=== PATIENT | male | born 1965 | race Caucasian/White ===

== ENCOUNTER 2023-10-08 15:24 | Observation (INO) | payer BC, SELFPAY ==
[2023-10-08 10:31] VITALS: BP 120/75
--- NOTE | 2023-10-08 11:15 | ED.GENMED ---
History of Present Illness
<Khushbu Mariscal PA-C - Last Filed: 10/08/23 17:48>
General
Chief Complaint: Post Operative Problem(s)
Source: patient
Exam Limitations: none
Time Seen by Provider: 10/08/23 10:40
Nursing documentation reviewed up to this point in time: agreed with
Travel History
Have you had any contact with someone who has COVID-19?: No
Do you have any symptoms of coronavirus? Fever > 100 degrees, chills, cough, shortness of breath, sore throat, loss of taste or smell, muscle aches, or headache?: No
History of Present Illness
History of Present Illness:
Patient is a 58-year-old male with no significant past medical history postop day 5 from prostate biopsy presenting to emergency department for evaluation of fever and lower back pain. Patient had biopsy performed last Friday by Dr. Alejandra Pitts
at [facility]. On Friday he noticed a fever which has been intermittent but persisted since. Tmax of 102.5F. He also endorses low back pain. He was seen by his urologist on Friday where they did a urinalysis and culture. He was
started on Bactrim. He has been on antibiotic for 48 hours but symptoms have persisted. He states symptoms were worse last night with fever, urinary frequency, and back pain. He has been taking Tylenol every 6 hours to help with pain and fever.
He denies any chest pain, shortness of breath, nausea, vomiting, lightheadedness, or fainting. He denies any headache, neck pain. He denies any rectal bleeding or blood in his urine.
He has no other medical problems.
Past History
<Khushbu Mariscal PA-C - Last Filed: 10/08/23 17:48>
Past History
ED Past Medical History: Other (Diverticulitis)
ED Past Surgical History: None
Social History
Tobacco: Former smoker (quit 7 years ago)
Alcohol: None
Drug: None
Personal:
Living: with family
Employment: Employed
Family History
Family History: Other (n/c); Negative Cancer
Phy Exam
<Khushbu Mariscal PA-C - Last Filed: 10/08/23 17:48>
Physical Exam
Physical Exam:
General: In no apparent distress, nontoxic appearing
Vitals: Tachycardic, mildly febrile clinical otherwise vital signs stable
HEENT: Atraumatic, normocephalic; pupils equal round reactive light bilaterally, protecting airway
Neck: appears supple, no meningeal signs
CV: Tachycardic, regular rhythm, no evidence of cyanosis
Resp: No evidence of respiratory distress, lungs clear bilaterally without any wheezes, rales, rhonchi
Abd: Soft, nontender in all 4 quadrants non-distended
Extremities: No deformities, no evidence of cyanosis or edema DP pulses palpable and equal bilateral
Back: No reproducible tenderness or obvious deformities in lower back, no midline spinal
Neuro: alert and oriented x 3; speech normal, grossly intact
Psych: Normal affect
Skin: Intact, no rashes
Course
<Khushbu Mariscal PA-C - Last Filed: 10/08/23 17:48>
Orders/Labs/Results
Orders:
Orders
10/08/23 Lunch
Regular
At Your Request: Full Participation
Does patient need a safe tray?: No
10/08/23 11:10
0.9% Sodium Chloride 1000 ml [Nss] 1,000 ml IV BOLUS
10/08/23 11:28
Complete Blood Count/With Diff Urgent
Comprehensive Metabolic Panel Urgent
Lactic Acid Q4H
Comment: CANCEL 2nd LACTIC ACID IF 1st LACTIC ACID IS LESS THAN 2
Urinalysis Reflex To Culture Urgent
Date Specimen was Collected: 10/08/23
Time Specimen was Collected: 11:14
Urine Microscopic Reflex Cult Urgent
Blood Culture Q30M
ADDI Source: Blood/Venous
Specimen Description:
Blood Culture Q30M
ADDI Source: Blood/Venous
Specimen Description:
Urine Culture Urgent
ADDI Source: U
Specimen Description:
Date Specimen was Collected: 10/08/23
Time Specimen was Collected: 11:14
10/08/23 12:32
CT Abd/pel Without Iv Or Oral Urgent
Comment:
Reason For Exam: low back pain, UTI; recent prostate biopsy
10/08/23 13:51
Meropenem [Merrem] 500 mg IV NOW STA
10/08/23 13:55
0.9% Sodium Chloride 1000 ml [Nss] 1,000 ml IV BOLUS
10/08/23 14:56
Admit/Transfer Patient As Directed
Co-Sign Provider:
Level of Care: Observation services
Assign to:: Medical/Surgical
Physician / Group: tsai/hospitalist
Diagnosis: fevers
10/08/23 14:57
Code Status As Directed
Resuscitation Status: Full Code
10/08/23 17:45
Acetaminophen [Tylenol] 650 mg PO Q4HPRN PRN
Lactated Ringers [Lr] 1,000 ml IV 100 mls/hr
Sodium Bicarbonate 650 mg PO TID
10/08/23 17:45
Activity As Directed
Activity Level: Out of Bed-Early Mobility
Bladder Scan As Directed
Follow Bladder Retention/Intermittent Cath Algorithm?: Yes
PRN if no void in __ hours: 6
Frequency: Per Retention Algorithm
If Bladder Scan Result >: 500
then:: Straight cath
Straight Cath As Directed
Frequency: Per Retention Algorithm
Additional Instructions: straight cath as needed per acute urinary retention algorithm for 24 hrs
Additional Instructions: for bladder scan greater than 400 mL
Vital Signs As Directed
Frequency: Per unit guidelines
DX Deep Vein Thrombosis Video Routine
10/08/23 18:00
Enoxaparin Sodium [Lovenox] 40 mg SC QPM
10/08/23 22:00
Magnesium l-Lactate [Mag-Tab Sr] 84 mg PO HS
10/09/23 06:00
Basic Metabolic Panel IN AM
Complete Blood Count/With Diff IN AM
10/09/23 08:00
Tamsulosin [Flomax] 0.4 mg PO DAILY
10/10/23 06:00
Basic Metabolic Panel IN AM
Complete Blood Count/With Diff IN AM
10/11/23 06:00
Basic Metabolic Panel IN AM
Complete Blood Count/With Diff IN AM
10/12/23 06:00
Basic Metabolic Panel IN AM
Complete Blood Count/With Diff IN AM
10/13/23 06:00
Basic Metabolic Panel IN AM
Abnormal Lab Results
10/08/23
11:28
MCV 79.4 L fL
(80.0-94.0)
RDW 15.5 H %
(11.5-14.5)
Abs Immat Gran (auto) 0.1 H 10^3/uL
(0-0.05)
Absolute Neuts (auto) 8.7 H 10^3/uL
(1.4-6.5)
Absolute Lymphs (auto) 0.6 L 10^3/uL
(1.2-3.4)
Absolute Monos (auto) 0.7 H 10^3/uL
(0.1-0.6)
Immature Gran % 0.7 H %
(0-0.5)
Neutrophils % 86.3 H %
(42.2-75.2)
Lymphocytes % 5.9 L %
(20.5-51.1)
Sodium 132 L mmol/L
(135-145)
Carbon Dioxide 19 L mmol/L
(22-30)
Creatinine 1.4 H mg/dL
(0.7-1.3)
Glucose 109 H mg/dl
(70-99)
Urine Ketones Trace A
(Negative)
Ur Occult Blood Reflex 2+ A
(Negative)
Urine Nitrite (Reflex) Positive A
(Negative)
Leukocyte Esterase Rfl 2+ A
(Negative)
Urine RBC 7-10 A /HPF
(0-2)
Urine WBC (Reflex) 50-60 A /HPF
(0-5)
Urine Bacteria (Reflex) Moderate A
(Negative)
10/08/23 11:28
10/08/23 11:28
Vital Signs
Initial and Last Documented VS:
Initial Vital Signs
Temp Pulse Resp BP Pulse Ox
100.6 F H 110 18 120/75 98
10/08/23 10:31 10/08/23 10:31 10/08/23 10:31 10/08/23 10:31 10/08/23 10:31
Last Documented Vital Signs
Temp Pulse Resp BP Pulse Ox
103.0 F H 103 20 146/88 98
10/08/23 19:40 10/08/23 19:40 10/08/23 19:40 10/08/23 19:40 10/08/23 19:40
<Mike Gonzalez MD - Last Filed: 10/08/23 20:16>
Orders/Labs/Results
Orders:
Orders
10/08/23 Lunch
Regular
At Your Request: Full Participation
Does patient need a safe tray?: No
10/08/23 11:10
0.9% Sodium Chloride 1000 ml [Nss] 1,000 ml IV BOLUS
10/08/23 11:28
Complete Blood Count/With Diff Urgent
Comprehensive Metabolic Panel Urgent
Lactic Acid Q4H
Comment: CANCEL 2nd LACTIC ACID IF 1st LACTIC ACID IS LESS THAN 2
Urinalysis Reflex To Culture Urgent
Date Specimen was Collected: 10/08/23
Time Specimen was Collected: 11:14
Urine Microscopic Reflex Cult Urgent
Blood Culture Q30M
ADDI Source: Blood/Venous
Specimen Description:
Blood Culture Q30M
ADDI Source: Blood/Venous
Specimen Description:
Urine Culture Urgent
ADDI Source: U
Specimen Description:
Date Specimen was Collected: 10/08/23
Time Specimen was Collected: 11:14
10/08/23 12:32
CT Abd/pel Without Iv Or Oral Urgent
Comment:
Reason For Exam: low back pain, UTI; recent prostate biopsy
10/08/23 13:51
Meropenem [Merrem] 500 mg IV NOW STA
10/08/23 13:55
0.9% Sodium Chloride 1000 ml [Nss] 1,000 ml IV BOLUS
10/08/23 14:56
Admit/Transfer Patient As Directed
Co-Sign Provider:
Level of Care: Observation services
Assign to:: Medical/Surgical
Physician / Group: tsai/hospitalist
Diagnosis: fevers
10/08/23 14:57
Code Status As Directed
Resuscitation Status: Full Code
10/08/23 17:45
Acetaminophen [Tylenol] 650 mg PO Q4HPRN PRN
Lactated Ringers [Lr] 1,000 ml IV 100 mls/hr
Sodium Bicarbonate 650 mg PO TID
10/08/23 17:45
Activity As Directed
Activity Level: Out of Bed-Early Mobility
Bladder Scan As Directed
Follow Bladder Retention/Intermittent Cath Algorithm?: Yes
PRN if no void in __ hours: 6
Frequency: Per Retention Algorithm
If Bladder Scan Result >: 500
then:: Straight cath
Straight Cath As Directed
Frequency: Per Retention Algorithm
Additional Instructions: straight cath as needed per acute urinary retention algorithm for 24 hrs
Additional Instructions: for bladder scan greater than 400 mL
Vital Signs As Directed
Frequency: Per unit guidelines
DX Deep Vein Thrombosis Video Routine
10/08/23 18:00
Enoxaparin Sodium [Lovenox] 40 mg SC QPM
10/08/23 22:00
Magnesium l-Lactate [Mag-Tab Sr] 84 mg PO HS
10/09/23 06:00
Basic Metabolic Panel IN AM
Complete Blood Count/With Diff IN AM
10/09/23 08:00
Tamsulosin [Flomax] 0.4 mg PO DAILY
10/10/23 06:00
Basic Metabolic Panel IN AM
Complete Blood Count/With Diff IN AM
10/11/23 06:00
Basic Metabolic Panel IN AM
Complete Blood Count/With Diff IN AM
10/12/23 06:00
Basic Metabolic Panel IN AM
Complete Blood Count/With Diff IN AM
10/13/23 06:00
Basic Metabolic Panel IN AM
Abnormal Lab Results
10/08/23
11:28
MCV 79.4 L fL
(80.0-94.0)
RDW 15.5 H %
(11.5-14.5)
Abs Immat Gran (auto) 0.1 H 10^3/uL
(0-0.05)
Absolute Neuts (auto) 8.7 H 10^3/uL
(1.4-6.5)
Absolute Lymphs (auto) 0.6 L 10^3/uL
(1.2-3.4)
Absolute Monos (auto) 0.7 H 10^3/uL
(0.1-0.6)
Immature Gran % 0.7 H %
(0-0.5)
Neutrophils % 86.3 H %
(42.2-75.2)
Lymphocytes % 5.9 L %
(20.5-51.1)
Sodium 132 L mmol/L
(135-145)
Carbon Dioxide 19 L mmol/L
(22-30)
Creatinine 1.4 H mg/dL
(0.7-1.3)
Glucose 109 H mg/dl
(70-99)
Urine Ketones Trace A
(Negative)
Ur Occult Blood Reflex 2+ A
(Negative)
Urine Nitrite (Reflex) Positive A
(Negative)
Leukocyte Esterase Rfl 2+ A
(Negative)
Urine RBC 7-10 A /HPF
(0-2)
Urine WBC (Reflex) 50-60 A /HPF
(0-5)
Urine Bacteria (Reflex) Moderate A
(Negative)
10/08/23 11:28
10/08/23 11:28
Vital Signs
Initial and Last Documented VS:
Initial Vital Signs
Temp Pulse Resp BP Pulse Ox
100.6 F H 110 18 120/75 98
10/08/23 10:31 10/08/23 10:31 10/08/23 10:31 10/08/23 10:31 10/08/23 10:31
Last Documented Vital Signs
Temp Pulse Resp BP Pulse Ox
103.0 F H 103 20 146/88 98
10/08/23 19:40 10/08/23 19:40 10/08/23 19:40 10/08/23 19:40 10/08/23 19:40
<Khushbu Mariscal PA-C - Last Filed: 10/08/23 17:48>
MDM/Problems Addressed
Differential Diagnosis Includes:
Postop complication, UTI, pyelonephritis, urosepsis, prostatitis, urethritis
MDM/Problems Addressed:
Patient is a 58-year-old male postop day 5 from prostate biopsy presenting for evaluation of fevers and lower back pain. Patient seen by urologist on Friday and started on course of Bactrim for suspected UTI but fevers have persisted. He reports a
Tmax of 102.5 yesterday. Sent in today by urology for persistent fever. patient is mildly tachycardic on arrival to emergency department otherwise vital signs stable. He does have a low-grade temp of 100.6. He is generally well-appearing, appears
nontoxic. Abdomen soft and nontender. No CVA tenderness or midline spinal tenderness. Given recent biopsy in the setting of UTI not responding to initial treatment�concern for urosepsis. Will check basic labs, lactic acid, will send blood
cultures. Will collect urine sample and send for culture.
Called and had culture results from this past Friday that were done at his urologist while faxed over which showed no growth at that time.
CBC without any clinically significant abnormalities. His white blood cell count is at the upper limit of normal at 10.1. CMP shows signs consistent with mild dehydration otherwise no clinically significant abnormalities. Lactic acid is normal.
His urinalysis does show signs of infection�will send for culture. Although I do suspect that blood found in urine is likely due to recent procedure�will check CT of abdomen to ensure no kidney stone or pyelonephritis contributing to symptoms given
complaint of low back pain.
CT shows no acute abnormalities. Called and spoke to patient's urologist at [facility], Dr. Bermeo-she feels that although he is generally well-appearing here given failure of initial treatment he warrants IV antibiotics and aggressive IV fluids.
She recommends meropenem based on antibiogram's at [facility] where procedure was performed. Called and discussed infectious disease who agrees with following recommendations from urology for procedure was performed.
Will admit to hospitalist for IV meropenem and IV fluids. Discussed with hospitalist.
Chronic conditions affecting care:
Recent prostate biopsy,
Acute Exacerbation and/or Progression of Chronic Illness:
UTI not responding to initial medication, postoperative infection
<Khushbu Mariscal PA-C - Last Filed: 10/08/23 17:48>
*Radiology
Radiology exam reviewed: preliminary read by ED provider and radiology read reviewed
*Pulse Oximetry
Patient hypoxic: no
*Critical Care Note
Total Time (30-74mins, 75-104mins- exclusive of procedures): Not Applicable
Data Reviewed
Review of Other/Old Records Reveals: Labs
<Khushbu Mariscal PA-C - Last Filed: 10/08/23 17:48>
Patient Management
Discussion with other providers: Hospitalist and [employer] (Infectious disease and urology at [facility])
Escalation/DeEscalation of care consider admission/obs:
Although patient is nontoxic-appearing�given recent burst ager and failure of initial management UTI�will admit for IV antibiotics and concern for urosepsis based on recommendation of urologist Murray, blood cultures pending.
ED Attending Note
<Khushbu Mariscal PA-C - Last Filed: 10/08/23 17:48>
-
Portions of this chart may have been created with voice recognition software.� Occasional wrong word or��sound alike� substitutions may have occurred due to the inherent limitations of voice recognition software.
<Mike Gonzalez MD - Last Filed: 10/08/23 20:16>
ED Attending Note
Patient seen and examined by attending physician: Yes
ED Attending Note:
Patient status post prostate biopsy 5 days ago secondary to elevated PSA, presents to emergency department secondary to persistent fever, chills, along with left lower back pain over the past 3 days. Patient was evaluated by his urologist 2 days
ago and was started on Bactrim. This morning, upon waking up, his temperature was back up to 102 with chills sensation. Spoke with his urologist who recommended patient come to ED for an evaluation. Denies nausea, vomiting, or diarrhea. Denies
loss of appetite. Denies dizziness. Denies weakness. Denies history of kidney stones. Patient has had history of diverticulitis, but states that his symptoms are different.
Physical Exam
General: no apparent distress, not acutely ill. afebrile
Head: nc/at. eomi
Neck: supple. no meningeal signs.
Abdomen: normal bowel sounds. not tender.
Back: nontender.
Neuro: alert and oriented. no focal neurological deficits
Skin: no rash
Psychiatric: well kept. interactive and cooperative
Extremities: no edema. no calf tenderness.
Obtained urine cx (10/06/23) : no growth.
UA today noted, sig. for both nitrites/leuk est. Will obtain CT abd/pel due to ongoing back to evaluate for potential kidney stone vs other etiology. Afterwards, will reach out to patient's urologist and discussed treatment plan, including potential
outpatient f/u on different abx.
Discussed with (pt's urologist @ [facility]) - requests admission for iv abx, i.e. meropenem. Discussed with (ID) who agrees with meropenem treatment.
Discharge Plan
Departure
Patient Disposition: Admit
Date of Disposition: 10/08/23
Time of Disposition: 13:56
Presentation/result/management discussed w/ accepting MD/DO: Hospitalist
Discharge Problem:
Acute UTI, Post surgical complication
Interventions
Interventions:
*Risk Screen - Suicide Last Done: 10/08/23 18:07
*General Assessment Last Done: 10/08/23 11:49
*Neglect/Abuse Screening Last Done: 10/08/23 11:35
ED- Fall Risk Assessment Last Done: 10/08/23 11:49
*ED COVID-19 Vaccine History Last Done: 10/08/23 18:07
*Nursing Disposition Last Done: 10/08/23 17:51
ED-Skin Assessment Last Done: 10/08/23 11:12
Discharge Date and Time
Discharge Date/Time: 10/08/23 17:45
[2023-10-08] MEDS: NSS 1000 IV ×2 (11:34→13:59)
[2023-10-08 11:42] LABS: % Basophils 0.3 % (0-2); % Immature Granulocytes 0.7 % (0-0.5); % Lymphocytes 5.9 % (20.5-51.1); % Monocytes 6.8 % (1.7-9.3); % Neutrophils 86.3 % (42.2-75.2); Absolute Immature Granulocytes 0.1 10^3/uL (0-0.05); Absolute Lymphocytes 0.6 10^3/uL (1.2-3.4); Absolute Monocytes 0.7 10^3/uL (0.1-0.6); Absolute Neutrophils 8.7 10^3/uL (1.4-6.5); Hematocrit 39.4 % (39.0-52.0); Hemoglobin 13.8 g/dL (13.0-18.0); Mean Corpuscular Hgb 27.8 pg (27.0-31.0); Mean Corpuscular Volume 79.4 fL (80.0-94.0); Mean Platelet Volume 9.5 fL (7.4-10.4); Nucleated Red Blood Cells % 0 % (-); Platelet Count 181 10^3/uL (130-400); Red Blood Cell Count 4.96 10^6/uL (4.70-6.10); Red Cell Dist. Width 15.5 % (11.5-14.5); White Blood Cell Count 10.1 10^3/uL (4.8-10.8)
[2023-10-08 11:56] LABS: Lactic Acid 0.8 mmol/L (0.7-2.0)
[2023-10-08 11:57] LABS: ALT (SGPT) 34 U/L (0-50); AST (SGOT) 36 U/L (17-59); Albumin 4.2 g/dl (3.5-5.0); Alkaline Phosphatase 97 U/L (38-126); Blood Urea Nitrogen 13 mg/dl (9-20); Calcium 9.5 mg/dl (8.4-10.2); Carbon Dioxide 19 mmol/L (22-30); Chloride 103 mmol/L (98-107); Glucose 109 mg/dl (70-99); Potassium 4.5 mmol/L (3.5-5.1); Sodium 132 mmol/L (135-145); Total Bilirubin 0.5 mg/dl (0.2-1.3); Total Protein 7.2 g/dl (6.3-8.2)
[2023-10-08 12:05] LABS: Urine Albumin Trace (Neg - Trace); Urine Bilirubin Negative (Negative); Urine Character Slightly Cloudy (Clear); Urine Color Yellow; Urine Glucose Negative (Negative); Urine Ketone Trace (Negative); Urine Leukocyte 2+ (Negative); Urine Nitrite Positive (Negative); Urine Occult Blood 2+ (Negative); Urine Specific Gravity 1.015 (<1.030); Urine Urobilinogen Negative (Neg - 1+)
[2023-10-08 12:38] VITALS: BP 120/66
[2023-10-08 12:38] LABS: Urine Urothelial Cell 0-2 /LPF (FEW)
[2023-10-08 12:39] LABS: Urine Bacteria Moderate (Negative); Urine White Cell 50-60 /HPF (0-5)
[2023-10-08] MEDS: MERREM 500 MG IV ×2 (13:59→20:16)
--- NOTE | 2023-10-08 14:43 | HPS.HSE ---
Family Physician
-
Family Physician: Aditya Nichole
Chief Complaint
-
fevers
History of Present Illness
58-year-old male with past medical history as below who is presenting with fevers and chills. Last week on Friday patient underwent prostate biopsy at [facility]. Over the weekend patient with high fevers 101�102. Patient spoke to his primary
urologist and urine sample was obtained on Friday which per ER discussion with urologist is negative for growth. Patient was started on Bactrim. Patient with persistent high fever and thus was recommended by urology to come into the hospital.
Patient states during the daytime he feels okay however during the evening he feels fatigued. States of dysuria and increased urgency. States of mild groin pain. Denies any hematuria. Denies any nausea vomiting or diarrhea. States of low back
pain. States the urine sample given at the urologist office was light yellow pale in color. However states that urine sample given over here was dark yellow and malodorous.
Medical History
Past Medical History
Past Medical History: Reports Other
Additional Past Medical History:
BPH
History of diverticulitis
Past Surgical History: Reports Other
Additional Past Surgical History:
Sigmoidectomy 7 years ago secondary to severe diverticulitis
Social History
Tobacco: Former Smoker (Half a pack a day. Quit long time ago.)
Alcohol: None
Family History
Family History: Not pertinent
Allergies / Home Medications
Allergies reflects when Allergies were last updated in [employer].
Home Medications with original date entered in [employer]
Allergy/Medication List:
Allergies
Allergy/AdvReac Type Severity Reaction Status Date / Time
NKA - No Known Allergies Allergy Unknown Uncoded 10/08/23 10:40
Home Medications
acetaminophen 325 mg tablet (Tylenol) 650 mg PO Q6HPRN PRN MILD PAIN 10/08/23
magnesium oxide 400 mg PO HS 10/08/23
sulfamethoxazole 800 mg-trimethoprim 160 mg tablet (Bactrim DS) 1 tab PO BID 10/08/23
tamsulosin 0.4 mg capsule (Flomax) 0.4 mg PO DAILY 10/08/23
Review of Systems
-
History Source: Patient
A 12 point ROS was completed and negative except as noted: Yes
Physical Exam
Vital Signs
Vital Signs
Temp Pulse Resp BP Pulse Ox
99.0 F 85 16 120/66 98
10/08/23 13:21 10/08/23 12:38 10/08/23 12:38 10/08/23 12:38 10/08/23 12:38
Physical Exam
General: Well Developed, Well Nourished and No Apparent Distress
HEENT: NormoCephalic, Moist mucous membranes and Atraumatic
Respiratory: Clear
Cardiac: S1/S2 and Regular Rhythm; No Murmur or Rub
GI: Soft, Non Tender, Non Distended and Normal Bowel Sounds; No Organomegaly
Rectal: Deferred by Provider
Musculoskeletal: No Clubbing, No Cyanosis and No Edema
Skin: No Rash
Neuro: Awake, Alert, Oriented, AO x 3, No Motor Deficits and Nonfocal/grossly intact
Psych: Calm
Laboratory Results
-
10/08/23 11:28
10/08/23 11:28
Laboratory Results
Lactic Acid Cancelled 10/08/23 15:15
Total Bilirubin 0.5 mg/dl (0.2-1.3) 10/08/23 11:28
AST 36 U/L (17-59) 10/08/23 11:28
ALT 34 U/L (0-50) 10/08/23 11:28
Alkaline Phosphatase 97 U/L (38-126) 10/08/23 11:28
Impression/Plan
-
#Fevers likely concern with UTI likely secondary to acute prostatitis secondary to recent prostate biopsy
#Dysuria secondary to above
Per ER discussion with Primary urologist recommending meropenem
Will start patient meropenem
Follow urine and blood cultures
Tylenol as needed
CT abd/pelvis-no finding to suggest urinary tract calculus, bilateral obstructive uropathy with significant bilateral perinephric stranding. Prostate: Markedly markedly limited in hypertrophy with asymmetric with this patient without IV contrast
without gross focal significant abnormality. Degenerative changes of the lower thoracic and lumbar spine. No finding to suggest lumbar compression fracture. Unremarkable appendix. Stable 1 cm right adrenal nodule most likely benign adenoma.
#BPH status post prostate biopsy
Continue with Flomax
Bladder scan straight cath protocol
#Elevated creatinine likely multifactorial dehydration versus infection versus BPH
Patient creatinine was 0.8 in 06/2023 which was seen on patient phone portal
Will continue with IV fluids
With hold Bactrim
Could be false positive in the setting of recent Bactrim usage
Trend BMP
#Mild hyponatremia
#Mild metabolic acidosis
IV fluids switched to LR
Trend BMP.
Start low-dose p.o. sodium bicarbonate
DVT prophylaxis-lovenox
I spent a total of 78 minutes with the patient or on the floor. More than 50% of this time involved counseling and coordination of care.
--- NOTE | 2023-10-08 17:21 | CM ---
CM reviewed medical records. CM met with patient in room. Patient confirmed demographics. Patient denies history of VN, SNF or DME. patient is active with his PCP Dr. Ruiz. Patient uses [facility] in [place]. OBS letter given.
PLAN: Home no needs
[2023-10-08 18:00] VITALS: BP 174/77; BMI 28.0
--- NOTE | 2023-10-08 18:15 | PTCARENOTE ---
Received pt from ER.Pt awake, alert and oriented x3. Pt c/o low back pain, tolerable at this time. Pt having burning, urgency,frequency with urination, bladder scanned for 284ml, will monitor. Pt with temp of 103.1, pt took own personal tylenol in
ED around 1400 ( extra strength) instructed patient that we would administer medications going forward, medication bottles sent home with son. Ice packs placed in groin, under arms and neck, Fan provided, blankets removed. made aware of fever and
elevated bp 174/77, came down to 146/77, HR: 100s. 99% on RA. Pt oriented to room, call montano within reach, IVF infusing, plan of care ongoing.
[2023-10-08] MEDS: LR 1000 IV (18:26)
[2023-10-08] MEDS: LOVENOX 40 MG SC (18:40)
[2023-10-08] MEDS: SODIUM BICARBONATE 650 MG PO ×2 (18:41→21:23)
[2023-10-08 19:40] VITALS: BP 146/88
[2023-10-08] MEDS: TYLENOL 650 MG PO (20:15)
[2023-10-08] MEDS: STERILE WATER FOR INJECTION 10 ML IV (20:17)
[2023-10-08] MEDS: MAG-TAB SR 84 MG PO (21:23)
[2023-10-08] MEDS: MELATONIN 5 MG PO (21:48)
[2023-10-08 23:36] VITALS: BP 147/77
[2023-10-09] MEDS: STERILE WATER FOR INJECTION 10 ML IV ×4 (01:43→20:00)
[2023-10-09] MEDS: MERREM 500 MG IV ×4 (01:43→20:00)
[2023-10-09] MEDS: TYLENOL 650 MG PO ×4 (02:00→19:59)
[2023-10-09] MEDS: LR 1000 IV ×3 (04:00→23:11)
[2023-10-09 06:15] LABS: % Basophils 0.3 % (0-2); % Immature Granulocytes 0.8 % (0-0.5); % Lymphocytes 10.6 % (20.5-51.1); % Monocytes 11.5 % (1.7-9.3); % Neutrophils 73.8 % (42.2-75.2); Absolute Eosinophils 0.3 10^3/uL (0-0.7); Absolute Immature Granulocytes 0.1 10^3/uL (0-0.05); Absolute Neutrophils 6.7 10^3/uL (1.4-6.5); Hematocrit 38.8 % (39.0-52.0); Hemoglobin 12.9 g/dL (13.0-18.0); Mean Corp Hgb Conc. 33.2 g/dL (33.0-37.0); Mean Corpuscular Hgb 27.4 pg (27.0-31.0); Mean Corpuscular Volume 82.4 fL (80.0-94.0); Mean Platelet Volume 9.4 fL (7.4-10.4); Nucleated Red Blood Cells % 0 % (-); Platelet Count 155 10^3/uL (130-400); Red Blood Cell Count 4.71 10^6/uL (4.70-6.10); Red Cell Dist. Width 15.5 % (11.5-14.5); White Blood Cell Count 9.1 10^3/uL (4.8-10.8)
[2023-10-09 06:37] LABS: Blood Urea Nitrogen 11 mg/dl (9-20); Calcium 9.7 mg/dl (8.4-10.2); Carbon Dioxide 26 mmol/L (22-30); Chloride 99 mmol/L (98-107); Estimated Creatinine Clearance 79 ml/min; Glucose 105 mg/dl (70-99); Potassium 4.7 mmol/L (3.5-5.1); Sodium 136 mmol/L (135-145); eGFR > 60.00
[2023-10-09 08:22] VITALS: BP 120/79
[2023-10-09] MEDS: FLOMAX 0.400000000000000022 MG PO (08:45)
--- NOTE | 2023-10-09 10:59 | CONS.URO ---
Consultation
-
Date/Time Consultation Performed: 10/09/23 1605
Requesting Provider: Randal Wiley
Performing Provider: Vinod Barnes
Reason for Consultation: bacterial prostatitis
Medical History
History of Present Illness
Last Friday patient underwent prostate biopsy at [facility], by Dr Leticia Pitts. Over the weekend patient with high fevers 101�102. Patient spoke to his primary urologist and urine sample was obtained on Friday -- patient was started on
Bactrim. Due to persistently high fevers, he was recommended by his urologist to come into the hospital. Complaints: dysuria, urgency, groin pain, low back pain. Urine has become dark yellow and malodorous.
Past Medical History
Past Medical History: Other (Diverticulitis)
Past Surgical History: Bowel Resection (sigmoid diverticulectomy for diverticulitis)
Family History
Family History: Reviewed & Not Pertinent
Allergies/Home Medications
Allergies
Allergy/AdvReac Type Severity Reaction Status Date / Time
No Known Allergies Allergy Unverified 10/08/23 18:17
Home Medications
�Medication �Instructions �Recorded �Confirmed �Type
acetaminophen 325 mg tablet 650 mg PO Q6HPRN PRN MILD PAIN 10/08/23 10/08/23 History
(Tylenol)
magnesium oxide 400 mg PO HS Supplement 10/08/23 10/08/23 History
melatonin 10 mg tablet 10 mg PO HS Sleep 10/08/23 10/08/23 History
sulfamethoxazole 800 1 tab PO BID Infection 10/08/23 10/08/23 History
mg-trimethoprim 160 mg tablet
(Bactrim DS)
tamsulosin 0.4 mg capsule (Flomax) 0.4 mg PO DAILY Urinary Issue 10/08/23 10/08/23 History
Review of Systems
-
A 12 point Review of Systems was completed except as noted: Yes
Constitutional: Reports Fever, Fatigue and Chills
Respiratory: Reports No Symptoms
Cardiac: Reports No Symptoms
: Reports Frequency, Urgency and Dark Urine
Skin: Reports No Symptoms
Neurological: Reports No Symptoms
Endocrine: Reports No Symptoms
Hematologic/Lymphatic: Reports No Symptoms
Psych: Reports No Symptoms
Physical Exam
Vital Signs
Vital Signs
Temp Pulse Resp BP Pulse Ox
98.5 F 89 16 120/79 99
10/09/23 10:06 10/09/23 08:22 10/09/23 08:22 10/09/23 08:22 10/09/23 08:22
Lab / Testing Results
Laboratory Results
10/09/23 05:43
10/09/23 05:43
Physical Exam
General: No Apparent Distress and Comfortable
HEENT: Normocephalic
Respiratory: Non Labored Respirations
GI: Soft
Psych: Calm and Intact Judgement
Assessment / Plan
-
E. coli Acute Bacterial Prostatitis, s/p transrectal needle biopsy of the prostate
Rec: 14-day course of oral antibiotics per Urine C&S results
Data Reviewed
-
CT Scan: Image personally visualized and interpreted (no relevant tract pathology)
Lab Data: Labs Reviewed
Old Records: Reviewed
--- NOTE | 2023-10-09 12:17 | W.PN.HOSP.TC ---
Today's Communication/Plan
-
Continue with IV fluids for today
Trend BMP
Await final culture data
Await ID and Urology eval
Assessment / Plan
Assessment / Plan
#sepsis likely 2/2 e.coli UTI likely secondary to acute prostatitis secondary to recent prostate biopsy
#Dysuria secondary to above
Per ER discussion with Primary urologist recommending meropenem
Blood cultures in lab
Urinary preliminary cultures with E. coli
Tylenol as needed
CT abd/pelvis-no finding to suggest urinary tract calculus, bilateral obstructive uropathy with significant bilateral perinephric stranding. Prostate: Markedly markedly limited in hypertrophy with asymmetric with this patient without IV contrast
without gross focal significant abnormality. Degenerative changes of the lower thoracic and lumbar spine. No finding to suggest lumbar compression fracture. Unremarkable appendix. Stable 1 cm right adrenal nodule most likely benign adenoma.
Persistent fevers on antibiotics. ID consulted. urology consulted.
#BPH status post prostate biopsy
Continue with Flomax
Bladder scan straight cath protocol
#Elevated creatinine likely multifactorial dehydration versus infection versus BPH
Patient creatinine was 0.8 in 06/2023 which was seen on patient phone portal
Will continue with IV fluids
With hold Bactrim
Creatinine improving.
Could be false positive in the setting of recent Bactrim usage
Trend BMP
#Mild hyponatremia
#Mild metabolic acidosis
IV fluids switched to LR
Trend BMP.
Acidosis resolved. Stop bicarb.
DVT prophylaxis-lovenox
Anticipated Discharge: > 48 hours
Subjective/Interval History
-
Date of Service: October 09, 2023
States feeling better this morning
Spiked multiple fevers overnight
Tolerating diet
Objective Data
-
Labs:
Laboratory Results
10/09/23
05:43
WBC 9.1
Hgb 12.9 L
Hct 38.8 L
Plt Count 155
Sodium 136
Potassium 4.7
Chloride 99
Carbon Dioxide 26
BUN 11
Creatinine 1.1
Glucose 105 H
Calcium 9.7
Vital Signs:
Vital Signs
Temp Pulse Resp BP Pulse Ox
98.6 F 89 16 120/79 99
10/09/23 11:31 10/09/23 08:22 10/09/23 08:22 10/09/23 08:22 10/09/23 08:22
I&O
10/08/23 10/09/23 10/10/23
06:59 06:59 06:59
Intake Total 1700 / 1700
Output Total 1250 / 1250
Balance 450 / 450
Physical Exam
-
General: Well Developed and No Apparent Distress
HEENT: Normocephalic, Atraumatic and Moist Mucous Membranes
Respiratory: Clear to Auscultation
Cardiac: Regular Rhythm and S1/S2; Negative Murmur, Rub or Gallop
GI: Soft, Nontender, Nondistended and Normal Bowel Sounds; Negative Organomegaly
Rectal: Deferred by Provider
Musculoskeletal: No Clubbing, No Cyanosis and No Edema
Skin: Negative Rash
Neuro: Nonfocal/Grossly Intact
Data Reviewed
-
Total Time Spent with Patient (in minutes): 55
[2023-10-09 15:00] VITALS: BP 123/83
--- NOTE | 2023-10-09 16:29 | CON.ID ---
Consultation
-
Date/Time Consultation Requested: 10/09/2023 08:02
Date/Time Consultation Performed: 10/09/2023 1600
Requesting Provider: Dr. Carter
Performing Provider: Dr. Gamble
Reason for Consultation: Fever, Complicated urinary tract infection
Chief Complaint / Past History
History of Present Illness
Tyrel Alvarado is a 58-year-old man being evaluated at the request of Dr. Carter in regards to fever. History is obtained from chart review, along with patient interview.
The patient recently underwent prostate biopsy at [facility] (approximately 6 days ago) over concerns for a persistently elevated PSA. He notes that radiology indicated several areas concerning for malignancy. He reports that the
transrectal biopsy went well, but over the next several days the patient developed fevers in the 101 to 102 degree range. The patient was in communication with his Urologist and a urine sample was obtained 4 days ago and the patient was started on
Bactrim. Despite antibiotic therapy, fevers persisted and he was advised to come to the hospital. He admits to dysuria, but no significant hematuria. He denies any abdominal pains. He denies any nausea, vomiting or diarrhea.
Past History
Past Medical History: None
Additional Past Surgical History:
Partial bowel resection
Allergy History:
No Known Allergies Allergy (Unverified 10/08/23 18:17)
Medications Reviewed: Yes
Current Antibiotics:
Meropenem
Social History
Tobacco: Non-Smoker
Alcohol: Occasional
Drug: None
Employment: Employed
Review of Systems
Vital Signs
Temp Pulse Resp BP Pulse Ox
99.2 F 89 18 123/83 98
10/09/23 15:00 10/09/23 15:00 10/09/23 15:00 10/09/23 15:00 10/09/23 15:00
Physical Exam
Physical Exam
Constitutional: No Acute Distress, Comfortable and Non-toxic
Eyes: No Conjunctival Hemorrhage and Sclera Anicteric
Oral: No Thrush and No Ulcers
Cardiovascular: Regular Rate and S1/S2; Negative S3/S4
Pulmonary: Clear; Negative Wheezes, Rales or Rhonchi
Gastrointestinal: Soft, Non Tender, Non Distended and Normal Bowel Sounds
Genito-Urinary: Negative Barker
Extremities: Negative Edema or Clubbing
Neurological: Awake and Alert
Psychological: Calm
Lab / Diagnostic Study Results
10/09/23 05:43
10/09/23 05:43
Abs Immat Gran (auto) 0.1 10^3/uL (0-0.05) H 10/09/23 05:43
Absolute Neuts (auto) 6.7 10^3/uL (1.4-6.5) H 10/09/23 05:43
Absolute Lymphs (auto) 1.0 10^3/uL (1.2-3.4) L 10/09/23 05:43
Absolute Monos (auto) 1.0 10^3/uL (0.1-0.6) H 10/09/23 05:43
Absolute Basos (auto) 0.0 10^3/uL (0-0.2) 10/09/23 05:43
Immature Gran % 0.8 % (0-0.5) H 10/09/23 05:43
Neutrophils % 73.8 % (42.2-75.2) 10/09/23 05:43
Lymphocytes % 10.6 % (20.5-51.1) L 10/09/23 05:43
Monocytes % 11.5 % (1.7-9.3) H 10/09/23 05:43
Eosinophils % 3.0 % (0-6) 10/09/23 05:43
Basophils % 0.3 % (0-2) 10/09/23 05:43
Lactic Acid Cancelled 10/08/23 15:15
Ur Squamous Epith Cells 3-5 /LPF (Few) 10/08/23 11:28
Microbiology Results
Micro:
10/08/23 11:28 Blood Culture - Preliminary
Blood/Venous No Growth in 24 hours- Final report to follow
10/08/23 11:28 Blood Culture - Preliminary
Blood/Venous No Growth in 24 hours- Final report to follow
10/08/23 11:28 Urine Culture - Preliminary
Urine Escherichia coli
Imaging:
10/08/2023 CT abdomen/pelvis without contrast: No findings to suggest urinary tract calculus, bilateral obstructive uropathy or significant bilateral perinephric stranding. It is a markedly limited exam without IV or oral contrast to assess the
urinary bladder, but overall appears unremarkable. Prostate gland imaging is inherently limited with this imaging modality. Please see full dictation for additional detail.
Assessment / Plan
Fever
Complicated urinary tract infection +/- Prostatitis
Recent prostate biopsy
Recommendations:
Continue with empiric meropenem for the present.
Urine culture reveals growth of E. coli. Await sensitivities.
Follow blood cultures to ensure no bacteremia.
Once further culture data returned, patient will likely be able to be transition to an oral regimen to complete therapy.
[2023-10-09] MEDS: LOVENOX 40 MG SC (17:19)
[2023-10-09] MEDS: MAG-TAB SR 84 MG PO (21:47)
[2023-10-09 23:59] VITALS: BP 133/79
[2023-10-10] MEDS: MERREM 500 MG IV ×3 (01:56→14:18)
[2023-10-10] MEDS: STERILE WATER FOR INJECTION 10 ML IV ×3 (01:56→14:19)
[2023-10-10 06:12] LABS: % Basophils 0.4 % (0-2); % Eosinophils 0.5 % (0-6); % Immature Granulocytes 0.7 % (0-0.5); % Lymphocytes 13.2 % (20.5-51.1); % Monocytes 10.7 % (1.7-9.3); % Neutrophils 74.5 % (42.2-75.2); Absolute Immature Granulocytes 0.1 10^3/uL (0-0.05); Absolute Monocytes 0.8 10^3/uL (0.1-0.6); Absolute Neutrophils 5.6 10^3/uL (1.4-6.5); Hematocrit 36.6 % (39.0-52.0); Hemoglobin 12.2 g/dL (13.0-18.0); Mean Corp Hgb Conc. 33.3 g/dL (33.0-37.0); Mean Corpuscular Hgb 27.1 pg (27.0-31.0); Mean Corpuscular Volume 81.2 fL (80.0-94.0); Mean Platelet Volume 9.3 fL (7.4-10.4); Nucleated Red Blood Cells % 0 % (-); Platelet Count 179 10^3/uL (130-400); Red Blood Cell Count 4.51 10^6/uL (4.70-6.10); Red Cell Dist. Width 15.3 % (11.5-14.5); White Blood Cell Count 7.6 10^3/uL (4.8-10.8)
[2023-10-10 06:43] LABS: Blood Urea Nitrogen 13 mg/dl (9-20); Calcium 9.2 mg/dl (8.4-10.2); Carbon Dioxide 22 mmol/L (22-30); Chloride 101 mmol/L (98-107); Estimated Creatinine Clearance 97 ml/min; Glucose 107 mg/dl (70-99); Potassium 4.2 mmol/L (3.5-5.1); Sodium 132 mmol/L (135-145); eGFR > 60.00
--- NOTE | 2023-10-10 07:22 | W.PN.URO.CBU ---
Today's Communication / Plan
-
Rec: 14-day course of oral antibiotics per Urine C&S results; pt to f/u with his urologist at [facility]
Assessment / Plan
-
E. coli Acute Bacterial Prostatitis, s/p transrectal needle biopsy of the prostate
Diagnosis
-
Date of Service: October 10, 2023
-
Patient Diagnosis:
E. coli Acute Bacterial Prostatitis, s/p transrectal needle biopsy of the prostate
Objective
-
Vital Signs
Temp Pulse Resp BP Pulse Ox
99.1 F 89 14 133/79 96
10/10/23 05:03 10/09/23 23:59 10/09/23 23:59 10/09/23 23:59 10/09/23 23:59
Intake and Output
10/09/23 10/10/23 10/11/23
06:59 06:59 06:59
Intake Total 1700 / 1700 1440 / 1440
Output Total 1250 / 1250 1750 / 1750
Balance 450 / 450 -310 / -310
Intake:
Oral fluids 480 / 480 1440 / 1440
IV fluids (Total) 1200 / 1200
IV piggybacks 20 / 20
Output:
Urine, Voided 1250 / 1250 1750 / 1750
Other:
Number of approximated MODERATE 2 3
amounts of urine
Laboratory Results
10/10/23 05:33
10/10/23 05:33
urine C&S: E.coli
Physical Exam
-
General - well developed, well nourished, no acute distress
Chest - clear bilaterally
Abdomen - soft, non-tender, positive bowel sounds, no CVAT, no incisional pain or distention
Genitalia - normal
Rectal - normal
Skin - warm & dry with no rash
Neuro - AOx3, no motor deficits
Extremities - no clubbing, no cyanosis, no edema
Incision - clean, dry
Dressing - clean, dry, intact
[2023-10-10 07:48] VITALS: BP 131/79
[2023-10-10] MEDS: FLOMAX 0.400000000000000022 MG PO (09:07)
[2023-10-10] MEDS: LR 1000 IV (09:16)
--- NOTE | 2023-10-10 11:28 | W.PN.HOSP.TC ---
Addendum entered and electronically signed by Randell Carter MD 10/10/23 15:53:
d/w with ID-pt eager to leave today. Per ID, they will follow up on final susceptibility results. Patient understand that he will have to come back to the hospital if if it resistance to oral ciprofloxacin and may require IV abx.
EKG was checked with QTc 437 and normal. ID recommending ciprofloxacin for 500 mg Every 12 for 14 days.
More than 30 minutes spent in discharge including
Final examination of the patient
Summarizing hospital stay
Instructions for continuing care to all relevant caregivers
Preparation of discharge records, prescriptions, and referral forms
Total time spent (in minutes): 50
Original Note:
Today's Communication/Plan
-
Await urine culture
ID recs
Stop fluids and monitor p.o. intake.
Assessment / Plan
Assessment / Plan
#sepsis likely 2/2 e.coli UTI likely secondary to acute prostatitis secondary to recent prostate biopsy
#Dysuria secondary to above
Blood cultures in lab-neg so far.
Urinary preliminary cultures with E. coli. Await susceptibility results.
Tylenol as needed
CT abd/pelvis-no finding to suggest urinary tract calculus, bilateral obstructive uropathy with significant bilateral perinephric stranding. Prostate: Markedly markedly limited in hypertrophy with asymmetric with this patient without IV contrast
without gross focal significant abnormality. Degenerative changes of the lower thoracic and lumbar spine. No finding to suggest lumbar compression fracture. Unremarkable appendix. Stable 1 cm right adrenal nodule most likely benign adenoma.
Afebrile for 24 hours.
Appreciate ID and urology recs.
#BPH status post prostate biopsy
Continue with Flomax
Bladder scan straight cath protocol
#Elevated creatinine likely multifactorial dehydration versus infection versus BPH
Patient creatinine was 0.8 in 06/2023 which was seen on patient phone portal
DC IVF.
With hold Bactrim
Creatinine improving.
Could be false positive in the setting of recent Bactrim usage
Trend BMP
#Mild hyponatremia
#Mild metabolic acidosis
stop further IVF.
Trend BMP.
Acidosis resolved. Stop bicarb.
DVT prophylaxis-lovenox
Anticipated Discharge: Within 24 hours
Subjective/Interval History
-
Date of Service: October 10, 2023
Afebrile for 24h
feeling alot better
Objective Data
-
Labs:
Laboratory Results
10/10/23
05:33
WBC 7.6
Hgb 12.2 L
Hct 36.6 L
Plt Count 179
Sodium 132 L
Potassium 4.2
Chloride 101
Carbon Dioxide 22
BUN 13
Creatinine 0.9
Glucose 107 H
Calcium 9.2
Vital Signs:
Vital Signs
Temp Pulse Resp BP Pulse Ox
98.4 F 74 14 131/79 97
10/10/23 07:48 10/10/23 07:48 10/10/23 07:48 10/10/23 07:48 10/10/23 07:48
I&O
10/09/23 10/10/23 10/11/23
06:59 06:59 06:59
Intake Total 1700 / 1700 1440 / 1440
Output Total 1250 / 1250 1750 / 1750
Balance 450 / 450 -310 / -310
Physical Exam
-
General: Well Developed and No Apparent Distress
HEENT: Normocephalic, Atraumatic and Moist Mucous Membranes
Respiratory: Clear to Auscultation
Cardiac: Regular Rhythm and S1/S2; Negative Murmur, Rub or Gallop
GI: Soft, Nontender, Nondistended and Normal Bowel Sounds; Negative Organomegaly
Rectal: Deferred by Provider
Musculoskeletal: No Clubbing, No Cyanosis and No Edema
Skin: Negative Rash
Neuro: Awake, AO x 3, No Motor Deficits and Nonfocal/Grossly Intact
[2023-10-10 11:48] VITALS: BMI 27.6
--- NOTE | 2023-10-10 15:09 | W.PN.ID1 ---
Date of Service
Date of Service: October 10, 2023
Today's Communication
Transition to oral send will 500 mg twice daily
Assessment / Plan
Fever
Complicated urinary tract infection +/- Prostatitis
-Cultures with E. coli
Recent prostate biopsy
Recommendations:
Urine culture reveals growth of E. coli. Awaiting sensitivities.
Patient notes that he would like to be discharged. I had a long discussion with him regarding the pending sensitivities. Ideally, he would stay until those sensitivities are returned, which should be back tomorrow. Alternatively, he could be
discharged on empiric ciprofloxacin 500 mg p.o. twice daily. He understands there is a chance that the isolate is not sensitive to fluoroquinolones, and could possibly require IV antibiotics. He accepts these risks.
Once sensitivities are back tomorrow, I will call the patient to inform him of the results.
I have communicated with the hospitalist that the patient can be transition to oral Cipro.
Chief Complaint
-: UTI
Subjective / Review of Systems
Review of Systems: No Fever and No Chills
Vital Signs / Physical Exam
Vital Signs
Vital Signs
Temp Pulse Resp BP Pulse Ox
98.2 F 74 14 131/79 97
10/10/23 11:47 10/10/23 07:48 10/10/23 07:48 10/10/23 07:48 10/10/23 07:48
Physical Exam
Constitutional: No Acute Distress, Well Developed, Comfortable and Non-toxic
Head: Normocephalic
Eyes: Sclera Anicteric
Cardiovascular: S1/S2; Negative S3/S4
Pulmonary: Non Labored
Gastrointestinal: Soft and Non Distended
Neurological: Awake and Alert
Psychological: Calm
Objective Data
Lab Data
Lab Results
10/10/23 05:33
10/10/23 05:33
Estimated Creat Clear 97 ml/min 10/10/23 05:33
Lactic Acid Cancelled 10/08/23 15:15
Total Bilirubin 0.5 mg/dl (0.2-1.3) 10/08/23 11:28
AST 36 U/L (17-59) 10/08/23 11:28
ALT 34 U/L (0-50) 10/08/23 11:28
Alkaline Phosphatase 97 U/L (38-126) 10/08/23 11:28
Most recent labs reviewed.
Micro Results:
10/08/23 11:28 Blood Culture - Preliminary
Blood/Venous No Growth in 48 hours- Final report to follow
10/08/23 11:28 Blood Culture - Preliminary
Blood/Venous No Growth in 48 hours- Final report to follow
10/08/23 11:28 Urine Culture - Preliminary
Urine Escherichia coli
Imaging:
10/08/2023 CT abdomen/pelvis without contrast: No findings to suggest urinary tract calculus, bilateral obstructive uropathy or significant bilateral perinephric stranding. It is a markedly limited exam without IV or oral contrast to assess the
urinary bladder, but overall appears unremarkable. Prostate gland imaging is inherently limited with this imaging modality. Please see full dictation for additional detail.
Care Review
Plan reviewed with: Physician (Hospitalist)
--- NOTE | 2023-10-10 15:47 | W.DCSUMMARY ---
Discharge Summary
Discharge Data
Date of Admission: 10/08/23
Date of Discharge: 10/10/23
-
Pending Results: Yes
Additional Pending Results:
Urine cultures susceptibility results
Hospital Course
58-year male past medical history of recent prostate biopsy was presented with dysuria and fevers. As outpatient patient was started on Bactrim and underwent urine culture results his primary urologist office which was negative for growth. Patient
was found to be septic. Patient received IV fluid resuscitation. Patient was started on meropenem. Infectious disease and Urology was consulted. Patient urine culture identification E. coli. Patient fever curve down trended and remained
afebrile for greater than 24 hours. Patient with elevated creatinine resolved with IV fluid. Patient persistent on leaving home. Infectious disease recommended ciprofloxacin. Patient does understand that he might have to return to the hospital
if urinary culture susceptible as well as his resistant to ciprofloxacin.
Discharge Plan
-
Patient Disposition: Home (Routine Discharge)
Discharge Diagnosis/Procedures: sepsis likely 2/2 e.coli UTI likely secondary to suspected acute prostatitis secondary to recent prostate biopsy
Dysuria
Elevated Creatinine
Mild hyponatremia
Mild metabolic acidosis
Condition: Fair
Diet: As tolerated
Activity: With assistance and As tolerated
Driving Restrictions: As prior to admission
Referrals:
Sharron Pitts MD [Non-Admitting Privileges] -
Aditya Nichole MD [Family Provider] - in less than 1 week
Prescriptions:
New
ciprofloxacin HCl [Cipro] 500 mg tablet
500 mg PO Q12H 14 Days Qty: 28 0RF
Continued
acetaminophen [Tylenol] 325 mg Tablet
650 mg PO Q6HPRN PRN (Reason: MILD PAIN)
tamsulosin [Flomax] 0.4 mg Capsule
0.4 mg PO DAILY
magnesium oxide 400 mg magnesium Tablet
400 mg PO HS
melatonin 10 mg Tablet
10 mg PO HS
Discontinued
sulfamethoxazole-trimethoprim [Bactrim DS] 800-160 mg Tablet
1 tab PO BID
Discharge Orders:
Discharge Patient (As Directed); Ordered 10/10/23
Ordered By: Randell Carter
Discharge Date and Time
Print Language: KYRGYZ
[2023-10-10 15:53] VITALS: BP 118/72
--- NOTE | 2023-10-11 13:37 | W.PN.UPDATE ---
Update Note
Progress Note Update
Returned call to patient advising of urine culture results. Patient was discharged yesterday on ciprofloxacin, but urine cultures have revealed growth of ESBL E. coli sensitive only to ertapenem, meropenem and Zosyn.
Advised that ciprofloxacin would not treat the current organism, and that he would need to reinitiate IV antibiotics. In order to do so he would need to return to the emergency room and be readmitted.
He reports he will discuss with his Urologist who is at an outside hospital ([place]).
He will let me know if he is returning to [place], at which time I can facilitate his readmission.
== END 2023-10-10 19:17 | disposition home or self-care (01) ==
LOC: 4 EAST ACU 15:24
PROVIDERS: Physician Assistant; ADMITTING PHYSICIAN Hospitalist; CONSULT PHYSICIAN Internal Medicine Infectious Disease; CONSULT PHYSICIAN Specialist; EMERGENCY PHYSICIAN Emergency Medicine; FAMILY PHYSICIAN Family Medicine
DX: T81.44XA Sepsis following a procedure, initial encounter (principal); A41.51 Sepsis due to Escherichia coli [E. coli]; N41.0 Acute prostatitis; Y84.8 Other medical procedures as the cause of abnormal reaction of the patient, or of later complication, without mention of misadventure at the time of the procedure; N40.0 Benign prostatic hyperplasia without lower urinary tract symptoms; E87.1 Hypo-osmolality and hyponatremia; E87.20 Acidosis, unspecified; Z79.899 Other long term (current) drug therapy; Z87.891 Personal history of nicotine dependence
CPT/HCPCS: 74176; 80048; 80053; 81003; 81015; 83605; 85025; 87040; 87077; 87086; 87186; 93005; 96361; 96374; 99284; G0378

== ENCOUNTER 2023-10-15 15:38 | Inpatient (IN) | payer BC, SELFPAY ==
[2023-10-15] VITALS (10 sets, daily range): BP systolic 119–137; BP diastolic 69–91; BMI 28.1
[2023-10-15 12:09] LABS: Urine Albumin Negative (Neg - Trace); Urine Bilirubin Negative (Negative); Urine Character Clear (Clear); Urine Color Yellow; Urine Glucose Negative (Negative); Urine Ketone Negative (Negative); Urine Leukocyte 2+ (Negative); Urine Nitrite Positive (Negative); Urine Occult Blood Negative (Negative); Urine Specific Gravity 1.015 (<1.030); Urine Urobilinogen Negative (Neg - 1+)
[2023-10-15 12:10] LABS: % Basophils 0.5 % (0-2); % Immature Granulocytes 2.2 % (0-0.5); Absolute Basophils 0.1 10^3/uL (0-0.2); Nucleated Red Blood Cells % 0 % (-)
[2023-10-15 12:23] LABS: % Eosinophils 1.3 % (0-6); % Lymphocytes 8.3 % (20.5-51.1); % Monocytes 5.8 % (1.7-9.3); % Neutrophils 81.9 % (42.2-75.2); ALT (SGPT) 72 U/L (0-50); AST (SGOT) 37 U/L (17-59); Absolute Eosinophils 0.2 10^3/uL (0-0.7); Absolute Immature Granulocytes 0.3 10^3/uL (0-0.05); Absolute Lymphocytes 1.3 10^3/uL (1.2-3.4); Absolute Monocytes 0.9 10^3/uL (0.1-0.6); Absolute Neutrophils 12.5 10^3/uL (1.4-6.5); Albumin 4.6 g/dl (3.5-5.0); Alkaline Phosphatase 98 U/L (38-126); Blood Urea Nitrogen 18 mg/dl (9-20); Calcium 10.1 mg/dl (8.4-10.2); Carbon Dioxide 22 mmol/L (22-30); Chloride 100 mmol/L (98-107); Glucose 106 mg/dl (70-99); Hematocrit 42.7 % (39.0-52.0); Hemoglobin 14.3 g/dL (13.0-18.0); Mean Corp Hgb Conc. 33.5 g/dL (33.0-37.0); Mean Corpuscular Hgb 27.4 pg (27.0-31.0); Mean Corpuscular Volume 81.8 fL (80.0-94.0); Mean Platelet Volume 8.8 fL (7.4-10.4); Platelet Count 310 10^3/uL (130-400); Potassium 4.6 mmol/L (3.5-5.1); Red Blood Cell Count 5.22 10^6/uL (4.70-6.10); Red Cell Dist. Width 15.6 % (11.5-14.5); Sodium 135 mmol/L (135-145); Total Bilirubin 0.6 mg/dl (0.2-1.3); Total Protein 7.9 g/dl (6.3-8.2); White Blood Cell Count 15.3 10^3/uL (4.8-10.8); eGFR > 60.00
[2023-10-15 12:40] LABS: Urine Bacteria Few (Negative); Urine Mucus Few; Urine Red Blood Cell 0-2 /HPF (0-2)
--- NOTE | 2023-10-15 14:44 | ED.GENMED ---
History of Present Illness
General
Chief Complaint: Abnormal Lab Value
Source: patient
Exam Limitations: none
Time Seen by Provider: 10/15/23 13:46
Nursing documentation reviewed up to this point in time: agreed with
Travel History
Have you had any contact with someone who has COVID-19?: No
Do you have any symptoms of coronavirus? Fever > 100 degrees, chills, cough, shortness of breath, sore throat, loss of taste or smell, muscle aches, or headache?: No
History of Present Illness
History of Present Illness:
58-year-old male with past medical history as documented presents to the emergency room with urinary symptoms�he was called back by infectious disease for readmission due to resistant urinary tract infection. Patient had biopsy of his prostate on
10/03/[address] Pitts with [facility] u[facility]. A few days after the biopsy he started to develop fevers and urinary symptoms. He was seen in the emergency room 10/08/2023 with the symptoms and was found to have a urinary tract infection he was
admitted and started on meropenem after discussion with his urologist. Infectious disease consulted, he was continued on meropenem ultimately discharged 10/10/2023 on ciprofloxacin. His final culture returned back the next day positive for ESBL E.
coli. He received a call from infectious disease (Dr. Gamble) that he needed to return for IV antibiotics. He says unfortunately had a in the family over the weekend and instead of returning he attended the and follow-up with his
urologist in the office this week. He had repeat urinalysis in the office that confirmed persistent infection and at the advice of his urologist he came back to the emergency room. He has been having persistent urinary symptoms and fevers
throughout the entirety of the past week. He says he has had dysuria and increased frequency, no hematuria. He says today he did not feel he had a fever earlier but now is having subjective fever and chills as the day goes on�was afebrile on
presentation. He denies any abdominal or flank pain. He denies any other complaints.
Past History
Past History
ED Past Medical History: Other (Diverticulitis)
ED Past Surgical History: None
Social History
Tobacco: Former smoker (quit 7 years ago)
Alcohol: None
Drug: None
Personal:
Living: with family
Employment: Employed
Family History
Family History: Other (n/c); Negative Cancer
Review of Systems
Review of Systems
All Other Systems: ROS reviewed and negative except as documented in HPI and ROS
Constitutional: Reports fever and chills
Respiratory: Denies trouble breathing
Cardiac: Denies chest pain
ABD/GI: Denies abdominal pain, nausea or vomiting
: Reports dysuria and frequency; Denies flank pain
Musculoskeletal: Denies neck pain or back pain
Neurological: Denies headache, weakness or numbness
Phy Exam
Physical Exam
Physical Exam:
General: Awake, alert, oriented x3; no acute distress
Head: Normocephalic, atraumatic
Eyes: Conjunctiva normal, sclera anicteric
Throat: Airway intact, handling secretions
Neck: Trachea midline
Lungs: Clear to auscultation bilaterally, no wheezing, rales, rhonchi
Heart: Regular rate and rhythm, no murmurs, gallops, or rubs
Abd: Soft, non distended, nontender
Neuro: No gross deficits
Skin: no rash
Extremities: No edema in extremities, equal pulses in all extremities
Scores
Heart Failure Risk
Heart Failure Risk Score: Not Applicable
Heart Score for Chest Pain Patients
STEMI patient?: Not applicable
Withdrawal Assessment of Alcohol
Withdrawal Assessment Completed?: Not applicable
Course
Orders/Labs/Results
Orders:
Orders
10/15/23 11:53
Complete Blood Count/With Diff Urgent
Comprehensive Metabolic Panel Urgent
Urinalysis Reflex To Culture Urgent
Date Specimen was Collected: 10/15/23
Time Specimen was Collected: 11:48
Urine Microscopic Reflex Cult Urgent
Blood Culture Urgent
ADDI Source: Blood/Venous
Specimen Description:
Date Specimen was Collected: 10/15/23
Time Specimen was Collected: 11:48
Urine Culture Urgent
ADDI Source: U
Specimen Description:
Date Specimen was Collected: 10/15/23
Time Specimen was Collected: 11:48
10/15/23 14:42
Meropenem [Merrem] 1,000 mg IV NOW STA
10/15/23 14:43
INFECTIOUS DISEASE CONSULT Routine
Consulting Provider: Minnie Bolanos
Was physician already notified: Yes
Abnormal Lab Results
10/15/23
11:53
WBC 15.3 H 10^3/uL
(4.8-10.8)
RDW 15.6 H %
(11.5-14.5)
Abs Immat Gran (auto) 0.3 H 10^3/uL
(0-0.05)
Absolute Neuts (auto) 12.5 H 10^3/uL
(1.4-6.5)
Absolute Monos (auto) 0.9 H 10^3/uL
(0.1-0.6)
Immature Gran % 2.2 H %
(0-0.5)
Neutrophils % 81.9 H %
(42.2-75.2)
Lymphocytes % 8.3 L %
(20.5-51.1)
Glucose 106 H mg/dl
(70-99)
ALT 72 H U/L
(0-50)
Urine Nitrite (Reflex) Positive A
(Negative)
Leukocyte Esterase Rfl 2+ A
(Negative)
Urine Bacteria (Reflex) Few A
(Negative)
10/15/23 11:53
10/15/23 11:53
Vital Signs
Initial and Last Documented VS:
Initial Vital Signs
Temp Pulse Resp BP Pulse Ox
36.8 C 98 18 119/86 100
10/15/23 11:44 10/15/23 11:44 10/15/23 11:44 10/15/23 11:44 10/15/23 11:44
Last Documented Vital Signs
Temp Pulse Resp BP Pulse Ox
36.8 C 98 18 119/86 100
10/15/23 11:44 10/15/23 11:44 10/15/23 11:44 10/15/23 11:44 10/15/23 11:44
MDM/Problems Addressed
Differential Diagnosis Includes:
UTI
MDM/Problems Addressed:
58-year-old male returns to the emergency room with persistent urinary symptoms and fevers, urine cultures grew out ESBL E. coli and he was referred for admission and IV antibiotics. Vital signs here are normal. He had labs sent in triage which
showed leukocytosis to 15.3; CMP unremarkable creatinine acceptable at 1.2. His urinalysis from triage was positive for nitrites with bacteria and pyuria. Discussed with infectious disease will cover patient with meropenem and admit for continued
treatment. Discussed with hospitalist for admission.
Chronic conditions affecting care:
BPH
*Pulse Oximetry
Patient hypoxic: no
*Critical Care Note
Total Time (30-74mins, 75-104mins- exclusive of procedures): Not Applicable
Data Reviewed
Review of Other/Old Records Reveals: Labs, Records, Progress Notes and Discharge Summary
Source: patient, records and spouse
Patient Management
Discussion with other providers: Hospitalist (Discussed with hospitalist) and Deputy Coroner (Discussed with infectious disease)
Escalation/DeEscalation of care consider admission/obs:
Admission indicated
ED Attending Note
-
Portions of this chart may have been created with voice recognition software.� Occasional wrong word or��sound alike� substitutions may have occurred due to the inherent limitations of voice recognition software.
Discharge Plan
Departure
Patient Disposition: Admit
Date of Disposition: 10/15/23
Time of Disposition: 14:44
Admit to doctor: Marv
Presentation/result/management discussed w/ accepting MD/DO: Hospitalist
Discharge Problem:
Urinary tract infection due to extended-spectrum beta lactamase (ESBL) producing Escherichia coli
Prescriptions:
No Action
acetaminophen [Tylenol] 325 mg Tablet
650 mg PO Q6HPRN PRN (Reason: MILD PAIN)
tamsulosin [Flomax] 0.4 mg Capsule
0.4 mg PO DAILY
sulfamethoxazole-trimethoprim [Bactrim DS] 800-160 mg Tablet
1 tab PO BID
Patient Comments:
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
Referrals:
Aditya Nichole MD [Family Provider] -
Interventions
Interventions:
*Risk Screen - Suicide Last Done: 10/15/23 11:44
*General Assessment Last Done: 10/15/23 11:44
*Neglect/Abuse Screening Last Done: 10/15/23 11:44
*ED COVID-19 Vaccine History Last Done: 10/15/23 11:44
Discharge Date and Time
Print Language: BULGARIAN
--- NOTE | 2023-10-15 15:06 | HPS.HSE ---
Family Physician
-
Family Physician: Aditya Nichole
Chief Complaint
-
I was told to come back
History of Present Illness
58-year-old male past medical history as below who is presenting after he was told to come back. Of note patient was recently admitted to the hospital for sepsis secondary UTI after undergoing prostate biopsy. Patient wanted insisting on going
home prior to cultures being finalized and he was discharged on ciprofloxacin. Patient final culture resulted with ESBL resistance to multiple antibiotics and sensitive only to IV. Patient was called back next year per infectious disease on 10/10
to return to the ER [facility]. However patient came in today to the ER. Patient went to her primary urologist office earlier today where he did give urine sample and has prostate biopsy results positive for malignancy with Maria T score of 6. Patient
stated he is still processing information. Needs to undergo outpatient PET scan. Did notice some dysuria today. Mild suprapubic discomfort. Feeling warm but no fevers. Denies any flank pain. Otherwise no other complaints.
Medical History
Past Medical History
Past Medical History: Reports Other
Additional Past Medical History:
BPH
History of diverticulitis
Past Surgical History: Reports Other
Additional Past Surgical History:
Hx of sigmoidectomy 7 years ago
Social History
Tobacco: Former Smoker
Alcohol: None
Family History
Family History: Not pertinent
Allergies / Home Medications
Allergies reflects when Allergies were last updated in [facility].
Home Medications with original date entered in [facility]
Allergy/Medication List:
Allergies
Allergy/AdvReac Type Severity Reaction Status Date / Time
No Known Allergies Allergy Verified 10/15/23 11:44
Home Medications
acetaminophen 325 mg tablet (Tylenol) 650 mg PO Q6HPRN PRN MILD PAIN 10/08/23
tamsulosin 0.4 mg capsule (Flomax) 0.4 mg PO DAILY Urinary Issue 10/08/23
sulfamethoxazole 800 mg-trimethoprim 160 mg tablet (Bactrim DS) 1 tab PO BID 10/15/23
Review of Systems
-
History Source: Patient
A 12 point ROS was completed and negative except as noted: Yes
Physical Exam
Vital Signs
Vital Signs
Temp Pulse Resp BP Pulse Ox
98.3 F 98 18 119/86 100
10/15/23 11:44 10/15/23 11:44 10/15/23 11:44 10/15/23 11:44 10/15/23 11:44
Physical Exam
General: Well Developed, Well Nourished and No Apparent Distress
HEENT: NormoCephalic, Moist mucous membranes and Atraumatic
Respiratory: Clear
Cardiac: S1/S2 and Regular Rhythm; No Murmur or Rub
GI: Soft, Non Tender, Non Distended and Normal Bowel Sounds; No Organomegaly
Rectal: Deferred by Provider
Musculoskeletal: No Clubbing, No Cyanosis and No Edema
Skin: No Rash
Neuro: Awake, Alert, Oriented, AO x 3, No Motor Deficits and Nonfocal/grossly intact
Psych: Calm
Laboratory Results
-
10/15/23 11:53
10/15/23 11:53
Laboratory Results
Total Bilirubin 0.6 mg/dl (0.2-1.3) 10/15/23 11:53
AST 37 U/L (17-59) 10/15/23 11:53
ALT 72 U/L (0-50) H 10/15/23 11:53
Alkaline Phosphatase 98 U/L (38-126) 10/15/23 11:53
Impression/Plan
-
#ESBL UTI status post prostate biopsy
#Dysuria secondary to above
Tylenol as needed
Recent CT abd/pelvis-no finding to suggest urinary tract calculus, bilateral obstructive uropathy with significant bilateral perinephric stranding. Prostate: Markedly markedly limited in hypertrophy with asymmetric with this patient without IV
contrast without gross focal significant abnormality. Degenerative changes of the lower thoracic and lumbar spine. No finding to suggest lumbar compression fracture. Unremarkable appendix. Stable 1 cm right adrenal nodule most likely benign
adenoma.
Will start patient on meropenem
Probably will require PICC versus midline
Infectious disease has been consulted
Start gentle IV fluids for overnight
Repeat urine and blood cultures ordered
#R adrenal adenoma
seen on CT scan on 10/07
Pt to undergo PET scan as OP for prostrate malignancy.
#BPH status post prostate biopsy
Continue with Flomax
Recent biopsies were positive for malignancy per patient
#Elevated creatinine likely multifactorial dehydration versus infection versus BPH
Patient creatinine was 0.8 in 06/2023 which was seen on patient phone portal
Started IV fluids and trend BMP
DVT prophylaxis-lovenox
[2023-10-15] MEDS: MERREM 1000 MG IV (15:33)
--- NOTE | 2023-10-15 16:30 | CON.ID ---
Consultation
-
Date/Time Consultation Requested: 10/15/23 17:11
Date/Time Consultation Performed: 10/15/23 14:44
Requesting Provider: Dr Hagan
Performing Provider: Dr Bolanos
Reason for Consultation: prostatitis
Chief Complaint / Past History
Chief Complaint
dysuria, called back for culture results
History of Present Illness
Mr Weller is a 58 year old male who underwent transrectal prostate biopsy at [facility] (~10/02) for a persistently elevated PSA with radiology indicating several areas concerning for malignancy. Then over several days the patient
developed fevers in the 101 to 102 degree range. A urine sammple was sent and he was started on bactrim, but fevers persisted and he developed dysuria. He has a remote history of diverticulitis treated with multiple courses of antibiotics over the
years, not much other exposure to health care settings. He was admitted, started on meropenem, and discharged on empiric ciprofloxacin at his request. He initially felt better with resolution of fevers and chills, but has noticed that dysuria has
relapsed. Currently denies any fevers or chills. We disucssed possible oral vs IV options and he feels it would be simplest to plan to plan the home iv antibiotics. ID is consulted for assistance with management.
Past History
Additional Past Medical History:
as per hpi
Additional Past Surgical History:
Partial bowel resection
Allergy History:
No Known Allergies Allergy (Verified 10/15/23 11:44)
Medications Reviewed: Yes
Social History
Tobacco: Non-Smoker
Alcohol: Occasional
Drug: None
Family History
Family History: Not Pertinent
Review of Systems
Review of Systems
General: Negative Fever or Chills
All systems: All other systems were reviewed and were negative
Vital Signs
Temp Pulse Resp BP Pulse Ox
98.3 F 98 18 132/74 95
10/15/23 11:44 10/15/23 11:44 10/15/23 11:44 10/15/23 15:27 10/15/23 15:45
Physical Exam
Physical Exam
Constitutional: No Acute Distress
Cardiovascular: Regular Rate and S1/S2; Negative Murmur or Rub
Pulmonary: Clear and Symmetric; Negative Wheezes, Rales or Rhonchi
Gastrointestinal: Soft, Non Tender, Non Distended and Normal Bowel Sounds
Genito-Urinary: Negative Suprapubic Tenderness
Skin: Warm and Dry; Negative Rash or Jaundice
Lab / Diagnostic Study Results
10/15/23 11:53
10/15/23 11:53
Abs Immat Gran (auto) 0.3 10^3/uL (0-0.05) H 10/15/23 11:53
Absolute Neuts (auto) 12.5 10^3/uL (1.4-6.5) H 10/15/23 11:53
Absolute Lymphs (auto) 1.3 10^3/uL (1.2-3.4) 10/15/23 11:53
Absolute Monos (auto) 0.9 10^3/uL (0.1-0.6) H 10/15/23 11:53
Absolute Basos (auto) 0.1 10^3/uL (0-0.2) 10/15/23 11:53
Immature Gran % 2.2 % (0-0.5) H 10/15/23 11:53
Neutrophils % 81.9 % (42.2-75.2) H 10/15/23 11:53
Lymphocytes % 8.3 % (20.5-51.1) L 10/15/23 11:53
Monocytes % 5.8 % (1.7-9.3) 10/15/23 11:53
Eosinophils % 1.3 % (0-6) 10/15/23 11:53
Basophils % 0.5 % (0-2) 10/15/23 11:53
Microbiology Results
Micro:
10/15/23 11:53 Urine Culture - Pending
Urine
10/15/23 11:53 Blood Culture - Pending
Blood/Venous
Assessment / Plan
Prostatitis due to ESBL E Coli
- additional sensi requested but would likely take 2+ days to result
- patient prefers to go ahead with setting up home IV treatment
- PICC
- script sent to case sealer - ertapneme 1 gm iv q24 hr x2 weeks
- when IV antibiotics set up then patient will be stable for dc from ID perspective
- follow up with urology
--- NOTE | 2023-10-15 20:13 | VATNOTE ---
NOTED PICC ORDER. SPOKE WITH PT WHO WILL BE A M/S HOLD PT IN EMR OVERNIGHT. DISCUSSED PICC PLACEMENT WITH PT AND PT WITH MANY QUESTIONS RELATED TO ADMINISTRATION, SUPPLIES ETC. PT MAY POSSIBLY BE ABLE TO HAVE A ML SINCE ID HAS SUGGESTED IV
MEDICATIONS FOR 2WEEKS. PT WITH ADEQUATE IV ACCESS AT THIS TIME. WILL DEFER PICC INSERTION UNTIL 10/15 TO DETERMINE MOST APPRORIATE IV ACCESS FOR PT WITH INSURANCE CONSIDERATIONS WELL POSSIBLE TRAVEL PLANS TO [place] NEXT WEEK. VAT TO FOLLOW.
[2023-10-15] MEDS: INVANZ 60 MG IV (20:46)
[2023-10-15] MEDS: LOVENOX 40 MG SC (20:46)
[2023-10-15] MEDS: LR 1000 IV (21:25)
[2023-10-16 06:07] VITALS: BP 118/75
[2023-10-16 06:23] LABS: % Basophils 0.5 % (0-2); % Eosinophils 1.8 % (0-6); % Monocytes 7.4 % (1.7-9.3); % Neutrophils 74.3 % (42.2-75.2); Absolute Basophils 0.1 10^3/uL (0-0.2); Absolute Eosinophils 0.2 10^3/uL (0-0.7); Absolute Immature Granulocytes 0.4 10^3/uL (0-0.05); Absolute Lymphocytes 1.2 10^3/uL (1.2-3.4); Absolute Monocytes 0.8 10^3/uL (0.1-0.6); Absolute Neutrophils 7.5 10^3/uL (1.4-6.5); Hematocrit 38.7 % (39.0-52.0); Hemoglobin 12.8 g/dL (13.0-18.0); Mean Corp Hgb Conc. 33.1 g/dL (33.0-37.0); Mean Corpuscular Hgb 27.6 pg (27.0-31.0); Mean Corpuscular Volume 83.4 fL (80.0-94.0); Mean Platelet Volume 8.6 fL (7.4-10.4); Nucleated Red Blood Cells % 0 % (-); Platelet Count 264 10^3/uL (130-400); Red Blood Cell Count 4.64 10^6/uL (4.70-6.10); Red Cell Dist. Width 15.9 % (11.5-14.5); White Blood Cell Count 10.2 10^3/uL (4.8-10.8)
[2023-10-16 06:53] LABS: Blood Urea Nitrogen 18 mg/dl (9-20); Calcium 9.5 mg/dl (8.4-10.2); Carbon Dioxide 20 mmol/L (22-30); Chloride 108 mmol/L (98-107); Estimated Creatinine Clearance 97 ml/min; Glucose 105 mg/dl (70-99); Potassium 4.6 mmol/L (3.5-5.1); Sodium 135 mmol/L (135-145); eGFR > 60.00
[2023-10-16] MEDS: FLOMAX 0.400000000000000022 MG PO (07:19)
[2023-10-16] MEDS: LR 1000 IV (07:23)
[2023-10-16 08:50] VITALS: BP 119/68
--- NOTE | 2023-10-16 11:40 | W.PN.HOSP.TC ---
Addendum entered and electronically signed by Randell Carter MD 10/16/23 14:44:
Patient received midline. Patient was seen by IV infusion team who will deliver medication tonight. Patient was discharged
More than 30 minutes spent in discharge including
Final examination of the patient
Summarizing hospital stay
Instructions for continuing care to all relevant caregivers
Preparation of discharge records, prescriptions, and referral forms
Total time spent (in minutes): 45
Original Note:
Today's Communication/Plan
-
await midline
ID recs
IV abx set up
CM aware
Assessment / Plan
Assessment / Plan
#ESBL UTI status post prostate biopsy
#Dysuria secondary to above
Tylenol as needed
Recent CT abd/pelvis-no finding to suggest urinary tract calculus, bilateral obstructive uropathy with significant bilateral perinephric stranding. Prostate: Markedly markedly limited in hypertrophy with asymmetric with this patient without IV
contrast without gross focal significant abnormality. Degenerative changes of the lower thoracic and lumbar spine. No finding to suggest lumbar compression fracture. Unremarkable appendix. Stable 1 cm right adrenal nodule most likely benign
adenoma.
Will start patient on meropenem-Pt agreeable with plan to complete antibiotics for 2 weeks. No travel plans.
Pt agreeable for line placement- midline should suffice as abx for 2 weeks
Infectious disease has been consulted
Can stop IVF.
Repeat urine culture remains positive with E.coli
Blood culture in lab
#R adrenal adenoma
seen on CT scan on 10/07
Pt to undergo PET scan as OP for prostrate malignancy.
#BPH status post prostate biopsy
Continue with Flomax
Recent biopsies were positive for malignancy per patient
#Elevated creatinine likely multifactorial dehydration versus infection versus BPH
Patient creatinine was 0.8 in 06/2023 which was seen on patient phone portal
Cr at baseline
DVT prophylaxis-lovenox
Anticipated Discharge: Within 24 hours
Subjective/Interval History
-
Date of Service: October 16, 2023
Pt states he starting to feel better
Tolerating diet
States understands he needs to complete abx.
Objective Data
-
Labs:
Laboratory Results
10/16/23
06:08
WBC 10.2
Hgb 12.8 L
Hct 38.7 L
Plt Count 264
Sodium 135
Potassium 4.6
Chloride 108 H
Carbon Dioxide 20 L
BUN 18
Creatinine 0.9
Glucose 105 H
Calcium 9.5
Vital Signs:
Vital Signs
Temp Pulse Resp BP Pulse Ox
98.4 F 75 14 118/75 96
10/16/23 06:17 10/16/23 06:17 10/16/23 06:17 10/16/23 06:07 10/16/23 06:08
Physical Exam
-
General: No Apparent Distress
HEENT: Normocephalic and Atraumatic
Respiratory: Clear to Auscultation
Cardiac: Regular Rhythm and S1/S2; Negative Murmur, Rub or Gallop
GI: Soft and Nondistended; Negative Organomegaly
Rectal: Deferred by Provider
Musculoskeletal: No Clubbing, No Cyanosis and No Edema
Skin: Negative Rash
Neuro: Awake, Alert, Oriented, AO x 3, No Motor Deficits and Nonfocal/Grossly Intact
Psych: Calm
--- NOTE | 2023-10-16 14:09 | W.DCSUMMARY ---
Discharge Summary
Discharge Data
Date of Admission: 10/15/23
Date of Discharge: 10/16/23
-
Pending Results: No
Hospital Course
58-year-old male past medical history of BPH with recent acute prostatitis infection with ESBL who was admitted last week with prostatitis and left on his own accord as he wanted to leave the hospital on ciprofloxacin. Patient cultures urine came
back resistant to multiple antibiotics and the only sensitive to IV. Patient was called back by infectious disease on 10/10. Patient returned to ER on 10/14. Infectious disease was consulted. Patient received midline. Patient was started on
ertapenem. Patient eval by VN and will be discharged home for 2 weeks of IV ertapenem.
Discharge Plan
-
Patient Disposition: Home with Home Care
Discharge Diagnosis/Procedures: Prostatitis due to ESBL E Coli
Condition: Fair
Diet: As tolerated
Activity: As tolerated
Driving Restrictions: As prior to admission
Other Services: VN
Referrals:
Aditya Nichole MD [Family Provider] - in less than 1 week
Prescriptions:
New
Ertapenem [Invanz] 1000 MG
0.9% Sodium Chloride [Nss] 50 ML
100 mls/hr IV Q24H
Ordered By: Randell Carter MD
Last Taken: 10/15/23 20:46 60 mls
Continued
acetaminophen [Tylenol] 325 mg Tablet
650 mg PO Q6HPRN PRN (Reason: MILD PAIN)
tamsulosin [Flomax] 0.4 mg Capsule
0.4 mg PO DAILY
Discontinued
sulfamethoxazole-trimethoprim [Bactrim DS] 800-160 mg Tablet
1 tab PO BID
Patient Comments:
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
Discharge Orders:
Discharge Patient (As Directed); Ordered 10/16/23
Ordered By: Randell Carter
Discharge Date and Time
Print Language: LUXEMBOURGISH
--- NOTE | 2023-10-16 14:23 | W.PN.ID1 ---
Date of Service
Date of Service: October 16, 2023
Today's Communication
- when IV antibiotics set up then patient will be stable for dc from ID perspective
Assessment / Plan
Prostatitis due to ESBL E Coli
- additional sensi requested but will likely take 2+ days to result - patient prefers to go ahead with setting up home IV treatment
- midline in place
- script sent to trimming caser - ertapenem 1 gm iv q24 hr x2 weeks
- when IV antibiotics set up then patient will be stable for dc from ID perspective
- follow up with urology
Chief Complaint
-: Other (prostatitis)
Subjective / Review of Systems
afebrile
bp stable
isolate appears to have been re-IDd
leukocytosis resolved
cr stable
no suprapubic or cva tenderness
Vital Signs / Physical Exam
Vital Signs
Vital Signs
Temp Pulse Resp BP Pulse Ox
98.4 F 75 14 119/68 97
10/16/23 06:17 10/16/23 06:17 10/16/23 06:17 10/16/23 08:50 10/16/23 06:13
Physical Exam
Constitutional: No Acute Distress
Cardiovascular: Regular Rate and S1/S2; Negative Murmur or Rub
Pulmonary: Clear and Symmetric; Negative Wheezes or Rales
Gastrointestinal: Soft, Non Tender, Non Distended and Normal Bowel Sounds
Genito-Urinary: Negative Suprapubic Tenderness or CVA Tenderness
Skin: Warm and Dry; Negative Rash or Jaundice
Objective Data
Lab Data
Lab Results
10/16/23 06:08
10/16/23 06:08
Estimated Creat Clear 97 ml/min 10/16/23 06:08
Total Bilirubin 0.6 mg/dl (0.2-1.3) 10/15/23 11:53
AST 37 U/L (17-59) 10/15/23 11:53
ALT 72 U/L (0-50) H 10/15/23 11:53
Alkaline Phosphatase 98 U/L (38-126) 10/15/23 11:53
Most recent labs reviewed.
Micro Results:
10/15/23 11:53 Blood Culture - Preliminary
Blood/Venous No Growth in 24 hours- Final report to follow
10/15/23 11:53 Urine Culture - Preliminary
Urine Escherichia coli
[2023-10-16 14:49] VITALS: BP 126/71
== END 2023-10-16 15:15 | disposition home health service (06) | DRG 728 ==
LOC: ED 15:38
PROVIDERS: ADMITTING PHYSICIAN Hospitalist; CONSULT PHYSICIAN Student in an Organized Health Care Education/Training Program; EMERGENCY PHYSICIAN Emergency Medicine; FAMILY PHYSICIAN Family Medicine
DX: N41.9 Inflammatory disease of prostate, unspecified (principal); Z16.12 Extended spectrum beta lactamase (ESBL) resistance; Z16.24 Resistance to multiple antibiotics; N39.0 Urinary tract infection, site not specified; Z87.891 Personal history of nicotine dependence; B96.20 Unspecified Escherichia coli [E. coli] as the cause of diseases classified elsewhere; D35.01 Benign neoplasm of right adrenal gland; N40.0 Benign prostatic hyperplasia without lower urinary tract symptoms
CPT/HCPCS: 80048; 80053; 81003; 81015; 85025; 87040; 87086; 87088; 87181; 87186; 96361; 96365; 96375; 99285; J1335; J2185